=== PATIENT | male | born 2000 | race Caucasian/White ===

== ENCOUNTER 2020-09-03 11:29 | Emergency (ER) | payer OTHER, SELFPAY ==
--- NOTE | 2020-09-03 12:07 | RAD ---
RIGHT TIBIA FIBULA 2 VIEWS: HISTORY: Slipped and fell while walking in a store this morning. COMPARISON: None. FINDINGS: There is an intramedullary michael stabilizing the mid shaft tibial fracture which is in good position. There is incomplete healing of the mid shaft fibular fracture. I have no previous films to compare t he appearance of these fractures to the previous exam. IMPRESSION: Fractures of the mid shaft of the tibia and fibula which show incomplete healing. POS: [facility]
[2020-09-03] MEDS ORDERED: Acetaminophen/Codeine 30-300mg Tablet ONE (12:45)
== END 2020-09-03 12:53 | disposition home or self-care (01) ==
LOC: NAV ERS 11:29
DX: S66.911A Strain of unspecified muscle, fascia and tendon at wrist and hand level, right hand, initial encounter (principal); Z87.81 Personal history of (healed) traumatic fracture; E10.9 Type 1 diabetes mellitus without complications; W18.30XA Fall on same level, unspecified, initial encounter

== ENCOUNTER 2022-04-03 10:50 | Emergency (ER) | payer OTHER, SELFPAY | END 2022-04-03 11:45 | disposition home or self-care (01) | LOC: NAV ERS 10:50 | DX: L25.9 Unspecified contact dermatitis, unspecified cause (principal); E10.9 Type 1 diabetes mellitus without complications | CPT/HCPCS: 99282 ==

== ENCOUNTER 2022-11-05 13:46 | Emergency (ER) | payer SELFPAY ==
[2022-11-05] MEDS ORDERED: Ondansetron PF 4 MG/2 ML Vial ONE (14:27)
[2022-11-05] MEDS ORDERED: Sodium Chloride 0.9% 1,000 ML ONE (14:27)
[2022-11-05 14:44] LABS: #Basophils 0.1 thou/uL (0.0-0.2); #Eosinphils 0.1 thou/uL (0.0-0.7); #Lymphocytes 1.4 thou/uL (1.20-3.40); #Monocytes 0.5 thou/uL (0.11-0.59); #Neutrophils 7.2 thou/uL (1.40-6.50); %Basophils 0.9 % (0.0-1.0); %Eosinophils 0.9 % (0.0-10.0); %Lymphocytes 15.1 % (21.0-51.0); %Monocytes 5.4 % (0.0-10.0); %Neutrophils 77.7 % (42.0-75.0); Platelet Count 238 10x3/uL (130-400); RBC Distribution Width 12.8 % (11.5-14.5); Red Blood Cell (RBC) Count 5.17 mill/uL (4.70-6.10); White Blood Cell (WBC) Count 9.3 10x3/uL (4.8-10.8)
[2022-11-05 14:50] LABS: ALT (SGPT) 41 U/L (8-55); AST (SGOT) 34 U/L (5-34); Albumin 4.4 g/dL (3.5-5.0); Alkaline Phosphatase 77 U/L (40-110); Anion Gap 18 mmol/L (10-20); BUN (Urea Nitrogen) 11 mg/dL (8.9-20.6); Bilirubin, Total 0.8 mg/dL (0.2-1.2); Calc. Creatinine Clearance 0 mL/min (70-130); Calcium 9.1 mg/dL (7.8-10.44); Carbon Dioxide 22 mmol/L (22-29); Chloride 104 mmol/L (98-107); Estimated GFR 124; Globulin 2.3 g/dL (2.4-3.5); Glucose 106 mg/dL (70-105); Potassium 3.5 mmol/L (3.5-5.1); Protein, Total 6.7 g/dL (6.0-8.3); Sodium 140 mmol/L (136-145)
== END 2022-11-05 15:18 | disposition home or self-care (01) ==
LOC: NAV ERS 13:46
DX: A08.4 Viral intestinal infection, unspecified (principal); E86.0 Dehydration; F17.210 Nicotine dependence, cigarettes, uncomplicated
CPT/HCPCS: 80053; 85025; 96361; 96374; J2405; J7050

== ENCOUNTER 2023-01-23 12:05 | Emergency (ER) | payer SELFPAY ==
[2023-01-23] MEDS ORDERED: Ondansetron ODT 4 MG TAB ONE (12:51)
== END 2023-01-23 13:00 | disposition home or self-care (01) ==
LOC: NAV ERS 12:05
DX: A08.4 Viral intestinal infection, unspecified (principal); E10.9 Type 1 diabetes mellitus without complications; F17.210 Nicotine dependence, cigarettes, uncomplicated
CPT/HCPCS: 99283; Q0162

== ENCOUNTER 2023-03-27 13:38 | Emergency (ER) | payer SELFPAY ==
[2023-03-27] MEDS ORDERED: Ibuprofen 800 MG TAB ONE (14:16)
== END 2023-03-27 14:30 | disposition home or self-care (01) ==
LOC: NAV ERS 13:38
DX: B34.9 Viral infection, unspecified (principal); E10.9 Type 1 diabetes mellitus without complications; F17.210 Nicotine dependence, cigarettes, uncomplicated
CPT/HCPCS: 99283

== ENCOUNTER 2024-06-28 16:07 | Emergency (ER) | payer SELFPAY ==
[2024-06-28] MEDS ORDERED: diphenhydrAMINE 50 MG/ML VIAL ONE (17:11)
[2024-06-28] MEDS ORDERED: Ketorolac Tromethamine 30 MG (1 mL) VIAL ONE (17:12)
[2024-06-28] MEDS ORDERED: Sodium Chloride 0.9% 1,000 ML ONE (17:12)
[2024-06-28] MEDS ORDERED: Prochlorperazine 10 MG/2 ML VIAL ONE (17:12)
[2024-06-28 17:23] LABS: Bilirubin Negative (Negative); Blood, Urine Negative (Negative); Glucose, Urine (Dipstick) Negative (Negative); Ketone, Urine Negative (Negative); Leukocyte Trace (Negative); Nitrite Negative (Negative); Protein, Urine (Dipstick) Negative (Neg-Trace); Specific Gravity, Urine 1.025 (1.005-1.030)
[2024-06-28 17:24] LABS: Clarity Hazy (Clear)
[2024-06-28 17:27] LABS: Bacteria/HPF Rare-Few HPF (None Seen); CAUTI Indications for Culture Dysuria,urgency,freq; RBC/HPF 0-3 HPF (0-3); Squamous Epithelial 0-3 HPF (0-3)
[2024-06-28 17:28] LABS: Urine Culture Reflex Yes Yes
[2024-06-28] MEDS ORDERED: metroNIDAZOLE 500 MG TAB ONE (17:56)
[2024-06-29 01:34] LABS: Chlam.trachomatis by PCR,Urine Not Detected (NotDetected); GC N.gonorrhoeae PCR,UrineVOID Not Detected (NotDetected)
== END 2024-06-28 18:03 | disposition home or self-care (01) ==
LOC: NAV ERS 16:07
DX: R51.9 Headache, unspecified (principal); E10.9 Type 1 diabetes mellitus without complications; Z87.891 Personal history of nicotine dependence
CPT/HCPCS: 81001; 87086; 87491; 87591; 96365; 96375; J0780; J1200; J1885; J7030